=== PATIENT | female | born 1960 | race Caucasian/White ===

== ENCOUNTER 2019-04-27 04:20 | Inpatient (IN) | payer BC ==
[~2019-04-27] VITALS: Ht 182.9 cm; Wt 63.1 kg
[~2019-04-27 04:20] MED LIST: FURO20TA3 PO; SUMA100T3 PO
[2019-04-27] MEDS ORDERED: FURO80TA77 PO (04:28)
[2019-04-27] MEDS ORDERED: ONDANSETRON 2MG/ML, 2ML ONE (04:40)
[2019-04-27] MEDS ORDERED: MORPHINE SULFATE 4 MG/ML, 1ML ONE ×3 (04:41→08:59)
[2019-04-27] MEDS: MORPHINE SULFATE 4 MG/ML, 1ML IVPush PRN ×2 (04:43→05:15)
--- NOTE | 2019-04-27 04:49 | NUR ---
PT. TO ED WITH C/O LOWER/CENTRAL ABD PAIN WITH N/V X 24 HOURS. PT. APPEARS VERY UNCOMFORTABLE. MOANING/GROANING IN PAIN. PT. HAS FRINED WITH HER. PT. REPORTS HX OF SBO AND "THIS FEELS WORSE. FEELS LIKE I AM GIVING TO A BABY ELEPHANT." IV STARTED AND PT. MEDICATED PER DEC. CONTINUOUS PULSE OX AND B/P MONITORS IN PLACE. CALL LIGHT IN REACH. ALL SAFETY MEASURES OBSERVED.
[2019-04-27] MEDS ORDERED: SODIUM CHLORIDE FLUSH 10ML SYR IVF ONE (05:00)
[2019-04-27] MEDS ORDERED: ONDANSETRON 2MG/ML, 2ML IVPush ONE (05:00)
--- NOTE | 2019-04-27 05:18 | NUR ---
PT. MEDICATED PER MAR FOR CONTINUED PAIN. AWAITING CT. PT. AWARE OF NEED FOR UA.
[2019-04-27 05:21] LABS: BASOPHILS # (AUTO) 0.01 x10^3/uL (0-0.1); BASOPHILS % (AUTO) 0 % (0-1); EOSINOPHILS % (AUTO) 1 % (1-7); LYMPHOCYTES # (AUTO) 1.43 x10^3/uL (1-3.4); LYMPHOCYTES % (AUTO) 17 % (22-44); MD NO; MEAN CORPUSCULAR HEMOGLOBIN 34.8 pg (27.0-34.8); MEAN CORPUSCULAR HGB CONC 34.4 g/dL (32.4-35.8); MEAN CORPUSCULAR VOLUME 101.2 fL (80-100); MEAN PLATELET VOLUME 8.2 fL (7.4-10.4); MONOCYTES # (AUTO) 0.33 x10^3/uL (0.2-0.8); MONOCYTES % (AUTO) 4 % (2-9); NEUTROPHILS # (AUTO) 6.43 x10^3/uL (1.8-6.8); NEUTROPHILS % (AUTO) 78 % (42-75); PLATELET COUNT 255 x10^3/uL (130-400); RED CELL DISTRIBUTION WIDTH 12.8 % (9.6-15.2)
[2019-04-27 05:32] LABS: ALANINE AMINOTRANSFERASE 21 U/L (12-78); ALBUMIN 4.4 g/dL (3.4-5.0); ANION GAP 11 mmol/L (5-15); CALCIUM 9.7 mg/dL (8.5-10.1); CHLORIDE 103 mmol/L (98-107); CREATININE 0.93 mg/dL (0.55-1.02)
[2019-04-27 05:35] LABS: ALKALINE PHOSPHATASE 76 U/L (45-117); BILIRUBIN,TOTAL 2.4 mg/dL (0.2-1.0); TOTAL PROTEIN 7.6 g/dL (6.4-8.2)
--- NOTE | 2019-04-27 05:40 | NUR ---
PT. TO CT VIA [facility].
[2019-04-27] MEDS ORDERED: OMNIPAQUE 350 MG/ML, 100ML BOTTLE ONE (05:49)
--- NOTE | 2019-04-27 05:51 | NUR ---
PT. BACK FROM CT. REPORTS PAIN DOWN TO 5/10.
--- NOTE | 2019-04-27 05:55 | NUR ---
PT. AMBULATORY DOWN ALY TO BR TO PROVIDE URINE SAMPLE. AMBULATES WITH STEADY GAIT.
[2019-04-27 06:23] LABS: MICROSCOPIC NOT IND
--- NOTE | 2019-04-27 06:27 | NUR ---
PT WITH EPISODE OF SATTING 70% ON RA. PT HOWEVER IS AWAKE AND BREATHING, GOOD WAVE FORM. PT PLACED ON 3LNC AND NOW SATTING 99%
[2019-04-27 06:31] LABS: CULTURE INDICATED? NO
--- NOTE | 2019-04-27 07:02 | NUR ---
REPORT TO YASH RN TO ASSUME PT. CARE.
--- NOTE | 2019-04-27 07:15 | NUR ---
REPORT RECIEVED FROM JUSTIN HINES. PT RESTING ON [employer]. SANDI. CARTER. CALL LIGHT IN REACH.
--- NOTE | 2019-04-27 08:10 | NUR ---
PT RESTING ON GURHAROLD. REQUESTING MOUTH SWABS. SWABS GIVEN TO PT. REGISTRATION AT BEDSIDE. CALL LIGHT IN REACH. VSS.
[2019-04-27] MEDS ORDERED: DIPH12.532 PO (08:31)
[2019-04-27] MEDS ORDERED: ALEVE PO (08:32)
--- NOTE | 2019-04-27 08:32 | NUR ---
MED REC UPDATED AT THIS TIME. PT RESTING ON GURNEY. PT UPDATED ON POC. PT REQUESTING MORE PAIN MEDICINE AT THIS TIME. CALL LIGHT IN REACH.
[2019-04-27] MEDS ORDERED: D5%-0.45% NACL 1,000 ML IV ONE (08:50)
[2019-04-27] MEDS ORDERED: ONDANSETRON 2MG/ML, 2ML IVPush PRN (09:00)
[2019-04-27] MEDS ORDERED: MORPHINE SULFATE 4 MG/ML, 1ML IVPush PRN (09:00)
--- NOTE | 2019-04-27 09:05 | NUR ---
PT MEDICATED PER EMACrystal. KYLEEN. VSS. PT RESTING ON GURNEY. PT AWARE OF POC.
--- NOTE | 2019-04-27 10:12 | NUR ---
REPORT GIVEN TO JUSTIN CALLAHAN.
[2019-04-27 11:37] VITALS: BP 96/58
[2019-04-27 12:46] VITALS: BP 142/82
[2019-04-27] MEDS ORDERED: PLEASE ENTER HEIGHT AND WEIGHT MC SCH (14:30)
[2019-04-27] MEDS: KETOROLAC 30 MG/1 ML IVPush PRN (16:18)
[2019-04-27] MEDS ORDERED: ONDANSETRON ODT 4 MG PO PRN (18:00)
[2019-04-27] MEDS ORDERED: ONDANSETRON 2MG/ML, 2ML IV PRN (18:00)
[2019-04-27] MEDS ORDERED: KETOROLAC 30 MG/1 ML IV PRN (18:00)
[2019-04-27] MEDS ORDERED: MORPHINE SULFATE 4 MG/ML, 1ML IV PRN (18:00)
[2019-04-27] MEDS: METOCLOPRAMIDE 5 MG/ML, 2ML IV SCH (18:22)
[2019-04-27] MEDS: SODIUM CHLORIDE 0.9% 1,000 ML IV SCH (18:22)
[2019-04-27 18:30] VITALS: BP 96/58
[2019-04-27 18:42] VITALS: BP 109/64
[2019-04-27] MEDS ORDERED: SUMATRIPTAN 6MG/0.5ML SQ PRN (22:00)
[2019-04-28] MEDS: METOCLOPRAMIDE 5 MG/ML, 2ML IV SCH ×4 (00:20→17:56)
[2019-04-28 01:05] VITALS: BP 105/62
[2019-04-28] MEDS: SODIUM CHLORIDE 0.9% 1,000 ML IV SCH ×3 (01:50→17:56)
[2019-04-28 04:10] LABS: ANION GAP 6 mmol/L (5-15); CALCIUM 8.2 mg/dL (8.5-10.1); CHLORIDE 111 mmol/L (98-107); CREATININE 0.61 mg/dL (0.55-1.02)
[2019-04-28 04:18] LABS: BASOPHILS # (AUTO) 0.02 x10^3/uL (0-0.1); BASOPHILS % (AUTO) 0 % (0-1); EOSINOPHILS % (AUTO) 5 % (1-7); LYMPHOCYTES # (AUTO) 1.95 x10^3/uL (1-3.4); LYMPHOCYTES % (AUTO) 44 % (22-44); MD NO; MEAN CORPUSCULAR HEMOGLOBIN 33.8 pg (27.0-34.8); MEAN CORPUSCULAR HGB CONC 33.2 g/dL (32.4-35.8); MEAN CORPUSCULAR VOLUME 101.5 fL (80-100); MEAN PLATELET VOLUME 8.1 fL (7.4-10.4); MONOCYTES % (AUTO) 7 % (2-9); NEUTROPHILS # (AUTO) 1.97 x10^3/uL (1.8-6.8); NEUTROPHILS % (AUTO) 45 % (42-75); PLATELET COUNT 189 x10^3/uL (130-400); RED BLOOD COUNT 3.59 x10^6/uL (3.82-5.3); RED CELL DISTRIBUTION WIDTH 13.2 % (9.6-15.2)
[2019-04-28 06:52] VITALS: BP 114/72
[2019-04-28] MEDS: BISACODYL 10 MG SUPP PR SCH (10:33)
[2019-04-28] MEDS: KETOROLAC 30 MG/1 ML IVPush PRN (10:33)
[2019-04-28 13:39] VITALS: BP 123/72
[2019-04-28 19:08] VITALS: BP 127/74
[2019-04-29] MEDS: METOCLOPRAMIDE 5 MG/ML, 2ML IV SCH ×3 (00:05→12:00)
[2019-04-29 00:31] VITALS: BP 126/72
[2019-04-29] MEDS: SODIUM CHLORIDE 0.9% 1,000 ML IV SCH ×2 (01:18→09:52)
[2019-04-29] MEDS ORDERED: DIPHENHYDRAMINE 50 MG/ML, 1ML IVPush ONE (01:30)
[2019-04-29 01:53] VITALS: BP 132/62
[2019-04-29 02:30] VITALS: BP 123/70
[2019-04-29 07:15] VITALS: BP 148/78
[2019-04-29] MEDS: BISACODYL 10 MG SUPP PR SCH (09:30)
[2019-04-29 14:24] VITALS: BP 122/77
== END 2019-04-29 15:20 | disposition home or self-care (01) | DRG 390 ==
LOC: MERGE 04:20 → ED 08:08 → EDIP 08:48 → 3NW 10:33 → DCLOUNGE 04-29 15:06
PROVIDERS: ADMIT Surgery; ATTEND Internal Medicine
DX: K56.51 Intestinal adhesions [bands], with partial obstruction (principal); Z90.49 Acquired absence of other specified parts of digestive tract; Z90.710 Acquired absence of both cervix and uterus; Z88.8 Allergy status to other drugs, medicaments and biological substances
CPT/HCPCS: 36415; 74177; 80048; 80053; 81003; 83690; 85025; G0378; J1885; J2405; Q9967; J1200; J2270; J2765; J3030; J7030